=== PATIENT | female | born 1965 | race Asian ===

== ENCOUNTER 2018-05-02 08:22 | Day surgery (SDC) | payer OTHER ==
[~2018-05-02] VITALS: Ht 157.5 cm; Wt 70.3 kg
[2018-05-02 09:17] LABS: BASOPHILS % (AUTO) 0.3 % (0.0-2.0); EOSINOPHILS # (AUTO) 0.1 K/uL (0-0.4); EOSINOPHILS % (AUTO) 1.7 % (0.0-4.0); HEMATOCRIT 36.5 % (36-48); HEMOGLOBIN 11.9 g/dL (12.0-16.0); LYMPHOCYTES # (AUTO) 2.3 K/uL (2.5-16.5); LYMPHOCYTES % (AUTO) 40.8 % (20.5-51.1); MEAN CORPUSCULAR HEMOGLOBIN 21 pg (27-31); MEAN CORPUSCULAR HGB CONC 33 g/dL (33-37); MEAN CORPUSCULAR VOLUME 64.5 fL (80-94); MONOCYTES # (AUTO) 0.3 K/uL (0.8-1.0); NEUTROPHILS # (AUTO) 2.9 K/uL (1.8-7.7); NEUTROPHILS % (AUTO) 51.2 % (42.2-75.2); PLATELET COUNT (AUTO) 87 K/uL (140-450); RED BLOOD CELL COUNT(AUTO) 5.66 MIL/uL (4.20-5.40); RED CELL DISTRIBUTION WIDTH 17.9 % (11.6-13.7); WHITE BLOOD COUNT (AUTO) 5.7 K/uL (4.8-10.8)
[2018-05-02 09:29] LABS: PROTHROMBIN TIME 9.2 secs (10.8-13.4)
[2018-05-02] MEDS ORDERED: fentaNYL 0.05 MG/ML VIAL ONE (09:48)
[2018-05-02] MEDS ORDERED: LIDOCAINE 2% 1000 MG/50 ML VIAL INJ ONE (09:48)
[2018-05-02] MEDS ORDERED: fentaNYL 0.025 MG/HR PATCH TD SCH (10:20)
[2018-05-02] MEDS ORDERED: fentaNYL 0.05 MG/ML VIAL IVP ONE (10:25)
[2018-05-09] MEDS ORDERED: MIDAZOLAM 2 MG/2 ML VIAL ONE (07:51)
[2018-05-09] MEDS ORDERED: fentaNYL 0.05 MG/ML VIAL ONE (07:51)
[2018-05-09] MEDS ORDERED: MIDAZOLAM 2 MG/2 ML VIAL IVP SCH (08:00)
== END 2018-05-02 11:22 | disposition home or self-care (01) ==
LOC: MDS 08:22 → MMU 08:25 → MDS 11:22
PROVIDERS: ATTEND Internal Medicine Gastroenterology
DX: R94.5 Abnormal results of liver function studies (principal); I10 Essential (primary) hypertension; M19.90 Unspecified osteoarthritis, unspecified site; E11.9 Type 2 diabetes mellitus without complications; J45.909 Unspecified asthma, uncomplicated; E66.3 Overweight; Z68.28 Body mass index [BMI] 28.0-28.9, adult; Z98.890 Other specified postprocedural states; Z79.84 Long term (current) use of oral hypoglycemic drugs; Z79.899 Other long term (current) drug therapy
CPT/HCPCS: 36415; 47000; 76942; 85025; 85610; 85730; J2001; J3010; Q0092; 86677; 88307; 88313

== ENCOUNTER 2018-05-09 06:04 | Day surgery (SDC) | payer OTHER ==
[2018-05-09] MEDS ORDERED: MIDAZOLAM 2 MG/2 ML VIAL ONE (07:46)
[2018-05-09] MEDS ORDERED: fentaNYL 0.05 MG/ML VIAL ONE (09:48)
[2018-05-09] MEDS ORDERED: LIDOCAINE 2% 1000 MG/50 ML VIAL INJ ONE (09:48)
== END 2018-05-09 09:43 | disposition home or self-care (01) ==
LOC: MDS 06:04 → MMU 06:14 → MDS 09:43
PROVIDERS: ATTEND Internal Medicine Gastroenterology
DX: K25.9 Gastric ulcer, unspecified as acute or chronic, without hemorrhage or perforation (principal); E11.9 Type 2 diabetes mellitus without complications; I10 Essential (primary) hypertension; E66.3 Overweight; J45.909 Unspecified asthma, uncomplicated; Z98.890 Other specified postprocedural states; Z79.84 Long term (current) use of oral hypoglycemic drugs; Z79.899 Other long term (current) drug therapy; Z68.27 Body mass index [BMI] 27.0-27.9, adult
CPT/HCPCS: 43239; J2001; J2250; J3010